=== PATIENT | female | born 1970 | race Caucasian/White ===

== ENCOUNTER 2022-07-07 07:31 | Day surgery (SDC) | payer OTHER | END 2022-07-07 13:25 | disposition home or self-care (01) | LOC: AMB-ENDOS 07:31 | PROVIDERS: ATTEND Colon & Rectal Surgery | DX: D12.0 Benign neoplasm of cecum (principal); Z20.822 Contact with and (suspected) exposure to COVID-19; K64.8 Other hemorrhoids ==

== ENCOUNTER → 2022-07-08 | Emergency (ER) | payer OTHER ==
[~2022-07-08] VITALS: Ht 160 cm; Wt 63.5 kg
== END | disposition home or self-care (01) ==
LOC: ER 14:37
DX: K63.5 Polyp of colon (principal); R10.31 Right lower quadrant pain